=== PATIENT | male | born 1980 | race Caucasian/White ===

== ENCOUNTER 2022-07-15 15:25 | Emergency (ER) | payer OTHER, BC ==
[2022-07-15] MEDS ORDERED: Bacitracin/Neomycin/Polymyxin B Oint 0.9 GM U/D Packet TOP ONE (16:13)
[2022-07-15] MEDS ORDERED: Diphtheria,Pertussis(Acell),Tetanus Vaccine 0.5 ML Syringe IM ONE (16:26)
== END 2022-07-15 16:44 | disposition home or self-care (01) ==
LOC: LL.ED 15:25
DX: S60.111A Contusion of right thumb with damage to nail, initial encounter (principal); Z23 Encounter for immunization; W22.09XA Striking against other stationary object, initial encounter
CPT/HCPCS: 11740; 73140-F5; 90471; 90715; 99283-25